=== PATIENT | female | born 1955 | race Caucasian/White ===

== ENCOUNTER 2018-11-18 06:47 | Emergency (ER) | payer OTHER ==
[~2018-11-18] VITALS: Ht 144.8 cm; Wt 59.9 kg
[~2018-11-18 06:47] MED LIST: AMLO-147 PO; ASPI81TA52 PO; ATOR10TA65 PO; ERGO2000 PO; MECL-77 PO; MELO7.5T38 PO; ONDA4TAB14 PO; TRIA1TAB4 PO
[2018-11-18 06:49] VITALS: Ht 144.8 cm; Wt 59.9 kg
[2018-11-18] MEDS ORDERED: SOD CHLORIDE 0.9% 1,000 ML IV STA (07:14)
[2018-11-18 09:27] VITALS: BP 136/71; PULSE 82; RESP 16
== END 2018-11-18 09:32 | disposition home or self-care (01) ==
LOC: E/R 06:47
DX: R53.1 Weakness (principal); I10 Essential (primary) hypertension; R06.02 Shortness of breath; Z79.82 Long term (current) use of aspirin
CPT/HCPCS: 36415; 70450; 71045; 80053; 80061; 80307; 81001; 82962; 83036; 84439; 84443; 84484; 85025; 85610; 85730; 93005; 96360; 99285; J7030